=== PATIENT | female | born 1990 | race Caucasian/White ===

== ENCOUNTER 2017-09-29 21:55 | Emergency (ER) | payer BC ==
[~2017-09-29] VITALS: Ht 165.1 cm; Wt 56.7 kg
[2017-09-29 22:09] VITALS: BP 132/78
--- NOTE | 2017-09-29 22:50 | NUR ---
PT LEFT WITHOUT DISCHARGE PAPERS, GENE MOLINA.
== END 2017-09-29 23:20 | disposition home or self-care (01) ==
LOC: ER 22:03
DX: K59.00 Constipation, unspecified (principal); R01.1 Cardiac murmur, unspecified
CPT/HCPCS: 99282; A4606; Z7610